=== PATIENT | female | born 1940 | race Caucasian/White ===

== ENCOUNTER 2018-03-06 09:49 | Emergency (ER) | payer MEDICARE, OTHER ==
[~2018-03-06] VITALS: Ht 152.4 cm; Wt 49.0 kg
[2018-03-06] MEDS ORDERED: SIMVASTATIN40 MG PO (10:03)
[2018-03-06] MEDS ORDERED: PROTONIX40 M1 PO (10:04)
[2018-03-06] MEDS ORDERED: LISINOPRIL20 MG PO (10:05)
[2018-03-06] MEDS ORDERED: FOSAMAX 70 MG T70 MG PO (10:05)
[2018-03-06] MEDS ORDERED: GABAPENTIN 100100 MG PO (10:05)
[2018-03-06 10:14] LABS: ABSOLUTE BASOPHILS 0.1 thou/uL (0.0-0.2); ABSOLUTE LYMPHOCYTES 2.1 thou/uL (0.8-5.3); ABSOLUTE MONOCYTES 0.8 thou/uL (0.0-1.2); ABSOLUTE NEUTROPHILS 5.4 thou/uL (1.6-8.1); BASOPHILS 0.8 %; EOSINOPHILS 0.3 %; HEMOGLOBIN 13.5 gm/dL (12.0-15.0); LYMPHOCYTES 24.7 %; MCH 32.7 pg (26.0-34.0); MCHC 33.7 g/dL (28.0-37.0); MPV 7.8 fl. (7.2-11.1); NUCLEATED RBCS 0 /100WBC; PLATELET COUNT* 269 thou/uL (150-400); POLYS 64.2 %; RBC 4.12 mil/uL (4.20-5.00); RDW-CV 13.7 % (10.5-14.5); WBC 8.4 thou/uL (4.0-11.0)
[2018-03-06 10:23] LABS: ANION GAP 15 mmol/L (7-16); BUN 21 mg/dL (7-18); CALCIUM 9.6 mg/dL (8.5-10.1); CHLORIDE 102 mmol/L (98-107); CO2 24 mmol/L (21-32); CREATININE 1.4 mg/dL (0.6-1.3); GLUCOSE 150 mg/dL (70-99); POTASSIUM 4.5 mmol/L (3.5-5.1); SODIUM 141 mmol/L (136-145)
[2018-03-06 10:34] LABS: ALBUMIN 4.5 g/dL (3.4-5.0); ALKALINE PHOSPHATASE 70 U/L (46-116); LIPASE 199 U/L (73-393); NT-PRO BRAIN NAT PEPTIDE 45 pg/mL (<300); SGOT 25 U/L (15-37); SGPT 19 U/L (30-65); TOTAL BILIRUBIN 0.5 mg/dL (<0.1-1.0); TOTAL PROTEIN 8.6 g/dL (6.4-8.2); TROPONIN-I LEVEL <0.06 ng/mL (<0.06)
[2018-03-06 11:06] LABS: URINE BILIRUBIN NEGATIVE (Negative); URINE BLOOD NEGATIVE (Negative); URINE CLARITY CLEAR; URINE COLOR YELLOW; URINE GLUCOSE-RANDOM NEGATIVE (Negative); URINE KETONES NEGATIVE (Negative); URINE PROTEIN NEGATIVE (Negative); URINE SPECIFIC GRAVITY <= 1.005 (1.005-1.030); URINE UROBILINOGEN 0.2 E.U./dl (0.2-1.0)
[2018-03-06 11:08] LABS: URINE LEUKOCYTES-REFLEX 2+ (Negative); URINE NITRITE-REFLEX POSITIVE (Negative)
[2018-03-06 11:24] LABS: SQUAMOUS 0-3 Few /LPF (0-3)
[2018-03-06 11:25] LABS: BACTERIA-REFLEX >30 Many /HPF (None Seen); CASTS None Seen /LPF (None Seen); CRYSTALS None Seen /LPF (None Seen); MUCUS None Seen strn/LPF (None Seen); URINE RBC 0-2 Rare /HPF (0-2); URINE WBC-REFLEX 6-15 Few /HPF (0-5)
[2018-03-06] MEDS ORDERED: BACTRIM DS TAB1 EACH PO (14:07)
[2018-03-06 14:18] VITALS: BP 131/84
--- NOTE | 2018-03-06 16:40 | EKG ---
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
== END 2018-03-06 14:19 | disposition home or self-care (01) ==
LOC: M.ERS 09:49
PROVIDERS: Emergency Medicine
DX: N39.0 Urinary tract infection, site not specified (principal); R42 Dizziness and giddiness; Z88.5 Allergy status to narcotic agent

== ENCOUNTER → 2019-12-16 | Outpatient (CLI) | payer MEDICARE, OTHER ==
[~2019-12-16] MED LIST: BACTRIM DS TAB1 EACH PO; FOSAMAX 70 MG T70 MG PO; GABAPENTIN 100100 MG PO; LISINOPRIL20 MG PO; PROTONIX40 M1 PO; SIMVASTATIN40 MG PO
== END ==
LOC: M.RAD 09:58
DX: Z12.31 Encounter for screening mammogram for malignant neoplasm of breast (principal)

== ENCOUNTER 2021-07-27 09:33 | Inpatient (IN) | payer MEDICARE, OTHER ==
[~2021-07-27] VITALS: Ht 152.4 cm; Wt 52.2 kg
[~2021-07-27 09:33] MED LIST changes: -PROTONIX40 M1 PO; +PROTONIX40 M2 PO
[2021-07-27 09:36] VITALS: BP 127/59
[2021-07-27 10:15] LABS: ABSOLUTE LYMPHOCYTES 2.7 thou/uL (0.8-5.3); ABSOLUTE MONOCYTES 0.6 thou/uL (0.0-1.2); ABSOLUTE NEUTROPHILS 4.4 thou/uL (1.6-8.1); BASOPHILS 0.4 %; EOSINOPHILS 0.4 %; HEMATOCRIT 34.7 % (37.0-47.0); HEMOGLOBIN 11.5 gm/dL (12.0-15.0); MCH 30.1 pg (26.0-34.0); MCV 91.2 fL (80.0-100.0); MONOCYTES 8.2 %; MPV 7.5 fl. (7.2-11.1); NUCLEATED RBCS 0 /100WBC; PLATELET COUNT* 281 thou/uL (150-400); RDW-CV 13.8 % (10.5-14.5); WBC 7.8 thou/uL (4.0-11.0)
[2021-07-27 10:25] LABS: CREATININE 1.8 mg/dL (0.6-1.3); POTASSIUM 4.2 mmol/L (3.5-5.1)
[2021-07-27 10:30] LABS: ALBUMIN 4.2 g/dL (3.4-5.0); TOTAL BILIRUBIN 0.4 mg/dL (<0.1-1.0); TOTAL PROTEIN 7.4 g/dL (6.4-8.2)
[2021-07-27 15:25] VITALS: BP 102/49
[2021-07-27 19:25] VITALS: BP 119/56
[2021-07-28 01:23] VITALS: BP 108/57
[2021-07-28 04:55] LABS: HEMATOCRIT 28.6 % (37.0-47.0); HEMOGLOBIN 9.9 gm/dL (12.0-15.0); MCH 31.1 pg (26.0-34.0); MCHC 34.7 g/dL (28.0-37.0); MCV 89.6 fL (80.0-100.0); MPV 7.9 fl. (7.2-11.1); RBC 3.2 mil/uL (4.20-5.00); RDW-CV 13.4 % (10.5-14.5); WBC 7.4 thou/uL (4.0-11.0)
[2021-07-28 05:05] LABS: ALBUMIN 3.1 g/dL (3.4-5.0); CALCIUM 8.1 mg/dL (8.5-10.1); CREATININE 1.4 mg/dL (0.6-1.3); MAGNESIUM 1.7 mg/dL (1.8-2.4); POTASSIUM 4.4 mmol/L (3.5-5.1); TOTAL BILIRUBIN 0.4 mg/dL (<0.1-1.0); TOTAL PROTEIN 6.1 g/dL (6.4-8.2)
[2021-07-28 05:38] VITALS: BP 105/55
[2021-07-28 08:00] VITALS: BP 105/61
--- NOTE | 2021-07-28 15:56 | EKG ---
[place] [address] ELECTROCARDIOGRAM REPORT Name: АЛЕКСАНДР MCADAMS Room: [address] IN [facility].#: [id number] Admission: 07/27/21 Attend Phys: Lizbeth Jacobo, Discharge: Date of : 42 Date of Service: 07/28/21 1018 Report #: [id number] THIS REPORT FOR: //name// [facility] Test Date: 2021-07-28 Test Time: 10:18:02 Pat Name: АЛЕКСАНДР MCADAMS Department: Room: [address] Gender: F Business Process Associate: ROXANE CURIEL : 1940 Requested By: Philip Rod Order Number: [id number] Nehemias MD: Sabas Arredondo Measurements Intervals [place] Rate: 73 P: 56 HI: 146 QRS: 2 QRSD: 86 T: 9 QT: 389 QTc: 429 Interpretive Statements Sinus rhythm Low voltage, extremity and precordial leads Nonspecific ST-T changes Compared to ECG 03/06/2018 09:57:21 No significant changes Electronically Signed On 07-28-2021 15:55:48 CDT by Sabas Arredondo [email or web address] <ELECTRONICALLY SIGNED> By: Sabas Arredondo MD, [facility] 07/28/21 1555 1018 1018 Sabas Arredondo MD, [facility] /EPI
[2021-07-28 16:00] VITALS: BP 98/49
[2021-07-28 20:00] VITALS: BP 111/57
[2021-07-29] VITALS: BP 106/51; BP 134/54
[2021-07-29 04:00] VITALS: BP 100/49
[2021-07-29 07:21] LABS: HEMATOCRIT 28.1 % (37.0-47.0); HEMOGLOBIN 9.5 gm/dL (12.0-15.0); MCH 30.8 pg (26.0-34.0); MCHC 33.8 g/dL (28.0-37.0); MPV 7.7 fl. (7.2-11.1); RBC 3.09 mil/uL (4.20-5.00); RDW-CV 13.9 % (10.5-14.5); WBC 13.5 thou/uL (4.0-11.0)
[2021-07-29 07:30] LABS: APTT 31.3 Seconds (25.0-31.3); CALCIUM 8.1 mg/dL (8.5-10.1); CREATININE 1.4 mg/dL (0.6-1.3); INR 1.1; POTASSIUM 4.6 mmol/L (3.5-5.1); PROTIME 11.4 Seconds (9.20-11.50)
[2021-07-29 08:05] VITALS: BP 124/68
[2021-07-29 16:00] VITALS: BP 130/69
[2021-07-29 20:06] VITALS: BP 138/76
[2021-07-30 04:00] VITALS: BP 124/60
[2021-07-30 08:00] VITALS: BP 140/70
[2021-07-30 08:25] LABS: HEMATOCRIT 25.4 % (37.0-47.0); HEMOGLOBIN 8.8 gm/dL (12.0-15.0); MCH 31.4 pg (26.0-34.0); MCHC 34.8 g/dL (28.0-37.0); MCV 90.2 fL (80.0-100.0); MPV 8.2 fl. (7.2-11.1); RBC 2.82 mil/uL (4.20-5.00); RDW-CV 13.6 % (10.5-14.5); WBC 8.8 thou/uL (4.0-11.0)
[2021-07-30 09:02] LABS: CALCIUM 7.6 mg/dL (8.5-10.1); CREATININE 1.2 mg/dL (0.6-1.3); POTASSIUM 4.1 mmol/L (3.5-5.1)
[2021-07-30 09:35] VITALS: BP 140/70
[2021-07-30] MEDS ORDERED: TRAMADOL 50 MG50 MG PO (10:13)
[2021-07-30] MEDS ORDERED: CIPROFLOXACIN750 MG PO (10:22)
[2021-07-31 08:19] LABS: URINE BILIRUBIN NEGATIVE (Negative); URINE BLOOD TRACE (Negative); URINE CLARITY CLEAR; URINE COLOR YELLOW; URINE GLUCOSE-RANDOM NEGATIVE (Negative); URINE KETONES NEGATIVE (Negative); URINE LEUKOCYTES NEGATIVE (Negative); URINE NITRITE NEGATIVE (Negative); URINE PROTEIN NEGATIVE (Negative); URINE SPECIFIC GRAVITY 1.015 (1.005-1.030); URINE UROBILINOGEN 0.2 E.U./dl (0.2-1.0)
[2021-08-01] MEDS ORDERED: LISINOPRIL20 MG PO (18:27)
== END 2021-07-30 14:39 | DRG 521 ==
LOC: M.ERS 09:33 → M.2W 10:49 → M.TBA-ER 10:49 → M.2W 19:29
PROVIDERS: Emergency Medicine; Internal Medicine; ADMIT Internal Medicine; ATTEND Internal Medicine
PROC: 0SRR019 Replacement of Right Hip Joint, Femoral Surface with Metal Synthetic Substitute, Cemented, Open Approach (ICD-10-PCS; principal; 2021-07-28)
DX: M80.051A Age-related osteoporosis with current pathological fracture, right femur, initial encounter for fracture (principal); N17.0 Acute kidney failure with tubular necrosis; N39.0 Urinary tract infection, site not specified; I10 Essential (primary) hypertension; Z20.822 Contact with and (suspected) exposure to COVID-19; E78.5 Hyperlipidemia, unspecified; K21.9 Gastro-esophageal reflux disease without esophagitis; Z88.6 Allergy status to analgesic agent; Z79.899 Other long term (current) drug therapy

== ENCOUNTER 2021-07-30 11:06 | Inpatient (IN) | payer MEDICARE, OTHER ==
[~2021-07-30] VITALS: Ht 152.4 cm; Wt 45.4 kg
[~2021-07-30 11:06] MED LIST changes: +CIPROFLOXACIN750 MG PO; +TRAMADOL 50 MG50 MG PO
[2021-07-30 16:02] VITALS: BP 131/69
[2021-07-30 18:32] VITALS: BP 131/69
[2021-07-30 20:00] VITALS: BP 123/71
[2021-07-31 05:22] LABS: CALCIUM 8.2 mg/dL (8.5-10.1); CREATININE 1.1 mg/dL (0.6-1.3); POTASSIUM 3.9 mmol/L (3.5-5.1)
[2021-07-31 05:34] LABS: MAGNESIUM 1.6 mg/dL (1.8-2.4)
[2021-07-31 05:37] LABS: HEMATOCRIT 26.3 % (37.0-47.0); HEMOGLOBIN 9.1 gm/dL (12.0-15.0); MCHC 34.6 g/dL (28.0-37.0); MCV 89.6 fL (80.0-100.0); RBC 2.93 mil/uL (4.20-5.00); RDW-CV 13.7 % (10.5-14.5)
[2021-07-31 08:00] VITALS: BP 145/75
--- NOTE | 2021-07-31 11:52 | EKG ---
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: [place]A : 1940 Requested By: Remi Hoover Order Number: [id number] Reading MD: Mohamud Donnelly Measurements Intervals [place] Rate: 76 P: 39 GA: 138 QRS: 5 QRSD: 92 T: 10 QT: 386 QTc: 435 Interpretive Statements Sinus rhythm Low voltage, precordial leads Compared to ECG 07/28/2021 10:18:02 ST (T wave) deviation no longer present Electronically Signed On 07-31-2021 11:52:23 CDT by Mohamud Donnelly [email or web address] <ELECTRONICALLY SIGNED> By: David Donnelly MD, [facility] 07/31/21 1152 0 0 David Donnelly MD, [facility] /EPI
[2021-07-31 20:00] VITALS: BP 143/89
[2021-08-01 07:45] VITALS: BP 114/59
[2021-08-01 16:56] LABS: HEMATOCRIT 33.1 % (37.0-47.0); MCH 30.2 pg (26.0-34.0); MCHC 33.8 g/dL (28.0-37.0); MCV 89.5 fL (80.0-100.0); MPV 7.6 fl. (7.2-11.1); NUCLEATED RBCS 0 /100WBC; RDW-CV 13.6 % (10.5-14.5); WBC 13.4 thou/uL (4.0-11.0)
[2021-08-01 16:59] LABS: HEMOGLOBIN 11.2 gm/dL (12.0-15.0); PLATELET COUNT* 345 thou/uL (150-400)
[2021-08-01 17:15] LABS: CALCIUM 9.4 mg/dL (8.5-10.1); CREATININE 1.5 mg/dL (0.6-1.3); POTASSIUM 3.9 mmol/L (3.5-5.1); TOTAL BILIRUBIN 0.6 mg/dL (<0.1-1.0); TOTAL PROTEIN 7.1 g/dL (6.4-8.2)
[2021-08-01 17:35] LABS: BE 0.1 mmol/L (-2 to +3); PO2 113.5 mmHg (75.0-100.0)
[2021-08-01 17:37] LABS: PCO2 17.7 mmHg (35.0-45.0); pH 7.663 (7.340-7.450)
[2021-08-01 17:41] LABS: ABSOLUTE LYMPHOCYTES 1.2 thou/uL (0.8-5.3); ABSOLUTE MONOCYTES 0.3 thou/uL (0.0-1.2); ABSOLUTE NEUTROPHILS 11.9 thou/uL (1.6-8.1)
[2021-08-01 17:42] LABS: LARGE PLATELETS OCCASIONAL; PLATELET ESTIMATE ADEQUATE
[2021-08-01 18:10] VITALS: BP 131/69
[2021-08-01] MEDS ORDERED: ACETAMINOPHEN500 M1 PO (18:20)
[2021-08-01] MEDS ORDERED: IBUPROFEN 800800 M1 PO (18:22)
[2021-08-01] MEDS ORDERED: ERYTHROMYCIN250 M1 PO (18:24)
[2021-08-01] MEDS ORDERED: NEURONTIN100 MG PO (18:25)
[2021-08-01] MEDS ORDERED: FAMOTIDINE 20 M20 MG PO (18:25)
[2021-08-01] MEDS ORDERED: LIDODERM1 EACH TOP (18:26)
[2021-08-01] MEDS ORDERED: LISINOPRIL20 MG PO ×2 (18:27)
[2021-08-01] MEDS ORDERED: ATIVAN0.5 M1 PO (18:28)
[2021-08-01 19:17] LABS: URINE BLOOD 1+ (Negative); URINE CLARITY CLEAR; URINE COLOR YELLOW; URINE GLUCOSE-RANDOM NEGATIVE (Negative); URINE LEUKOCYTES-REFLEX NEGATIVE (Negative); URINE NITRITE-REFLEX NEGATIVE (Negative); URINE PROTEIN 1+ (Negative); URINE SPECIFIC GRAVITY 1.025 (1.005-1.030); URINE UROBILINOGEN 0.2 E.U./dl (0.2-1.0)
[2021-08-01 19:18] LABS: ICTOTEST (BILI CONFIRMATORY) Negative (Negative); URINE BILIRUBIN 1+ (Negative); URINE KETONES 3+ (Negative)
[2021-08-01 19:23] LABS: HYALINE CASTS 4-10 Moderate /LPF (None Seen); MUCUS 4-6 Moderate strn/LPF (None Seen); SQUAMOUS >10 Many /LPF (0-3)
[2021-08-01 19:24] LABS: AMORPHOUS URATES Moderate /LPF (None Seen); BACTERIA-REFLEX 1-9 Few /HPF (None Seen); URINE RBC 3-10 Few /HPF (0-2)
--- NOTE | 2021-08-02 10:40 | EKG ---
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: : 1940 Requested By: Lui Farmer Order Number: [id number] Nehemias MD: Darron Covington Measurements Intervals [place] Rate: 90 P: 63 CA: 142 QRS: 10 QRSD: 221 T: -6 QT: 363 QTc: 444 Interpretive Statements Sinus rhythm Left atrial enlargement Nonspecific intraventricular conduction delay Artifact in lead(s) I,III,aVR,aVL,aVF,V1,V2,V3,V4,V5,V6 Compared to ECG 07/31/2021 03:51:30 no change Electronically Signed On 08-02-2021 10:40:41 CDT by Darron Covington [email or web address] <ELECTRONICALLY SIGNED> By: Darron Covington MD, [facility] 08/02/21 1040 1606 1606 Darron Covington MD, [facility] /EPI
--- NOTE | 2021-08-02 10:44 | EKG ---
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: : 1940 Requested By: Lui Farmer Order Number: [id number] Nehemias MD: Darron Covington Measurements Intervals [place] Rate: 82 P: -27 [place]: 105 QRS: 16 QRSD: 97 T: 24 QT: 381 QTc: 445 Interpretive Statements Sinus rhythm Short [place] interval Low voltage, precordial leads Compared to ECG 08/01/2021 16:06:35 Short [place] interval now present Low QRS voltage now present Atrial abnormality no longer present Electronically Signed On 08-02-2021 10:43:38 CDT by Darron Covington [email or web address] <ELECTRONICALLY SIGNED> By: Darron Covington MD, FACC 08/02/21 1043 170 170 Darron Covington MD, [facility] /EPI
== END 2021-08-01 18:41 | disposition short-term general hospital (02) | DRG 536 ==
LOC: M.REH 11:06
PROVIDERS: Internal Medicine; ADMIT Physical Medicine & Rehabilitation; ATTEND Physical Medicine & Rehabilitation
DX: S72.001A Fracture of unspecified part of neck of right femur, initial encounter for closed fracture (principal); N39.0 Urinary tract infection, site not specified; I10 Essential (primary) hypertension; E78.5 Hyperlipidemia, unspecified; K21.9 Gastro-esophageal reflux disease without esophagitis; M81.0 Age-related osteoporosis without current pathological fracture; K59.00 Constipation, unspecified; Z88.6 Allergy status to analgesic agent; Z82.49 Family history of ischemic heart disease and other diseases of the circulatory system; W18.39XA Other fall on same level, initial encounter; Y93.89 Activity, other specified; Y92.89 Other specified places as the place of occurrence of the external cause; Y99.8 Other external cause status

== ENCOUNTER 2021-08-01 18:59 | Inpatient (IN) | payer MEDICARE, OTHER ==
[~2021-08-01] VITALS: Ht 152.4 cm; Wt 49.4 kg
[~2021-08-01 18:59] MED LIST changes: +ACETAMINOPHEN500 M1 PO; +ATIVAN0.5 M1 PO; +ERYTHROMYCIN250 M1 PO; +FAMOTIDINE 20 M20 MG PO; +IBUPROFEN 800800 M1 PO; +LIDODERM1 EACH TOP; +NEURONTIN100 MG PO
[2021-08-01 19:00] VITALS: BP 126/61
[2021-08-01 21:00] VITALS: BP 129/70
[2021-08-02] VITALS: BP 103/54
[2021-08-02 04:00] VITALS: BP 129/75
[2021-08-02 07:14] LABS: ABSOLUTE EOSINOPHILS 0.1 thou/uL (0.0-0.7); ABSOLUTE LYMPHOCYTES 1.2 thou/uL (0.8-5.3); ABSOLUTE MONOCYTES 0.9 thou/uL (0.0-1.2); ABSOLUTE NEUTROPHILS 4.4 thou/uL (1.6-8.1); BASOPHILS 0.5 %; HEMATOCRIT 26.1 % (37.0-47.0); LYMPHOCYTES 17.6 %; MCH 30.7 pg (26.0-34.0); MCHC 34.4 g/dL (28.0-37.0); MCV 89.4 fL (80.0-100.0); MONOCYTES 13.5 %; MPV 6.7 fl. (7.2-11.1); NUCLEATED RBCS 0 /100WBC; PLATELET COUNT* 280 thou/uL (150-400); POLYS 67.4 %; RBC 2.92 mil/uL (4.20-5.00); RDW-CV 13.6 % (10.5-14.5); WBC 6.6 thou/uL (4.0-11.0)
[2021-08-02 07:55] LABS: ALBUMIN 2.3 g/dL (3.4-5.0); CALCIUM 8.1 mg/dL (8.5-10.1); CREATININE 1.4 mg/dL (0.6-1.3); POTASSIUM 3.3 mmol/L (3.5-5.1); TOTAL BILIRUBIN 0.3 mg/dL (<0.1-1.0); TOTAL PROTEIN 5.6 g/dL (6.4-8.2)
[2021-08-02 08:10] VITALS: BP 115/60
[2021-08-02 12:00] VITALS: BP 128/70
--- NOTE | 2021-08-02 12:40 | 2DMMODE ---
[place] [address] 2 D/M-MODE ECHOCARDIOGRAM Name: АЛЕКСАНДР MCADAMS Room: [address] IN [facility]#: [id number] Admission: 08/01/21 Attend Phys: Lui Farmer Discharge: Date of : 42 Date of Service: 08/02/21 1239 Report #: [id number] THIS REPORT FOR: cc: Renu Lucas MD, Karmel MD Blick, David R. MD [facility] ~ APPROVED REPORT Study performed: 08/02/2021 11:14:08 EXAM: Comprehensive 2D, Doppler, and color-flow Echocardiogram Patient Location: In-Patient Room #: [facility] Status: routine BSA: 1.44 HR: 90 bpm BP: 115/60 mmHg Rhythm: NSR Other Information Study Quality: Fair Technically limited study due to OFF AXIS IMAGING PARASTERNAL VIEWS. Indications Syncope 2D Dimensions IVSd: 9.47 (7-11mm) LVOT Diam: 20.03 (18-24mm) LVDd: 41.94 mm PWd: 9.78 (7-11mm) Ascending Ao: 26.48 (22-36mm) LVDs: 23.78 (25-40mm) Aortic Root: 28.61 mm Volumes Left Atrial Volume (Systole) LA ESV Index: 12.90 mL/m2 Aortic Valve AoV Peak Ayden.: 1.86 m/s AO Peak Gr.: 13.90 mmHg LVOT Max P.42 mmHg AO Mean Gr.: 7.32 mmHg LVOT Mean P.57 mmHg LVOT Max V: 1.69 m/s AO V2 VTI: 28.34 cm LVOT Mean V: 0.96 m/[place] [address] 2 D/M-MODE ECHOCARDIOGRAM Name: АЛЕКСАНДР MCADAMS Room: [address] IN ..#: [id number] Admission: 08/01/21 Attend Phys: Lui Farmer Discharge: Date of : 42 Date of Service: 08/02/21 1239 Report #: [id number] QAMAR (VTI): 3.16 cm2 LVOT V1 VTI: 28.44 cm AI Elbert: 2.18 m/s2 AI PHT: 441.23 ms Mitral Valve E/A Ratio: 0.59 MV Decel. Time: 288.74 ms MV E Max Ayden.: 0.58 m/s MV PHT: 83.74 ms MVA (PHT): 2.63 cm2 TDI E/Lateral E': 5.27 E/Medial E': 5.80 Medial E' Ayden.: 0.10 m/s Lateral E' Ayden.: 0.11 m/s Tricuspid Valve RAP Estimate: 5.00 mmHg TR Peak Gr.: 26.10 mmHg RVSP: 31.00 mmHg PA Pressure: 31.00 mmHg Left Ventricle The left ventricle is normal size. There is normal LV segmental wall motion. There is normal left ventricular wall thickness. Left ventricular systolic function is normal. The left ventricular ejection fraction is within the normal range. LVEF is 65-70%. Grade I - abnormal relaxation pattern. Right Ventricle The right ventricle is normal size. The right ventricular systolic function is normal. Atria The left atrium size is normal. The right atrium size is normal. Aortic Valve The aortic valve is normal in structure. Mild aortic regurgitation. There is no aortic valvular stenosis. Mitral Valve The mitral valve is normal in structure. There is no mitral valve regurgitation noted. No evidence of mitral valve stenosis. Tricuspid Valve The tricuspid valve is normal in structure. [place] [address] 2 D/M-MODE ECHOCARDIOGRAM Name: АЛЕКСАНДР MCADAMS Room: [address] IN [facility]#: [id number] Admission: 08/01/21 Attend Phys: Lui Farmer Discharge: Date of : 42 Date of Service: 08/02/21 1239 Report #: [id number] regurgitation. estimated pa pressure 35 mm Hg Pulmonic Valve The pulmonary valve is normal in structure. There is no pulmonic valvular regurgitation. Great Vessels The aortic root is normal in size. IVC is normal in size and collapses >50% with inspiration. Pericardium There is no pericardial effusion. <Conclusion> LVEF is 65-70%. Mild aortic regurgitation. <ELECTRONICALLY SIGNED> By: Darron Covington MD, [facility] 08/02/21 1239 1239 1239 Darron Covington MD, FACC /INF
[2021-08-02 16:00] VITALS: BP 127/71
[2021-08-02 19:45] VITALS: BP 150/66
[2021-08-03 06:00] VITALS: BP 126/71
[2021-08-03 08:43] VITALS: BP 128/72
[2021-08-03 10:30] VITALS: BP 136/69; BP 140/72; BP 140/79
[2021-08-03 11:20] VITALS: BP 126/70
[2021-08-03] MEDS ORDERED: XARELTO10 M1 PO (16:14)
== END 2021-08-03 15:25 | DRG 312 ==
LOC: M.2W 18:59
PROVIDERS: ADMIT Internal Medicine; ATTEND Internal Medicine
DX: I95.1 Orthostatic hypotension (principal); E43 Unspecified severe protein-calorie malnutrition; N39.0 Urinary tract infection, site not specified; E78.5 Hyperlipidemia, unspecified; I12.9 Hypertensive chronic kidney disease with stage 1 through stage 4 chronic kidney disease, or unspecified chronic kidney disease; K21.9 Gastro-esophageal reflux disease without esophagitis; M81.0 Age-related osteoporosis without current pathological fracture; K59.00 Constipation, unspecified; N18.30 Chronic kidney disease, stage 3 unspecified; Z87.81 Personal history of (healed) traumatic fracture; Z88.6 Allergy status to analgesic agent

== ENCOUNTER 2021-08-03 14:18 | Inpatient (IN) | payer MEDICARE, OTHER ==
[~2021-08-03] VITALS: Ht 152.4 cm; Wt 45.4 kg
--- NOTE | ~2021-08-03 | PROC ---
[address] [address] PROCEDURE REPORT Name: АЛЕКСАНДР MCADAMS Room: [address] IN ..#: [id number] Admission: 08/03/21 Attend Phys: Remi Hoover MD Discharge: Date of : 42 Report #: [id number] THIS REPORT FOR: cc: Renu Lucas MD, Karmel MD [facility],Medical Records Staff ~ For GI report, please see the Provation report in Perceptive 7 content. By: 0657Medical Records Staff MADELIN /SAGAR
--- NOTE | ~2021-08-03 | CON ---
[facility] [address] [place] [address] CONSULTATION Name: АЛЕКСАНДР MCADAMS Room: [address] IN [facility]#: [id number] Admission: 08/03/21 Attend Phys: Remi Hoover MD Discharge: 08/17/21 Date of : 42 Report #: [id number] THIS REPORT FOR: cc: Renu Lucas MD, Karmel MD [place], Roxane S. DO ~ DATE OF CONSULTATION: 08/07/2021 NEUROLOGY CONSULT HISTORY OF PRESENT ILLNESS: The patient is an 81-year-old female who presents with 2 days of confusion. Her is in the room and he states that she has never had any difficulty with confusion and that it began 2 days ago. Apparently, the patient was admitted to the hospital after falling while cleaning her yard on 07/25. She was brought to the hospital and had to have a right hip hemiarthroplasty. On 07/31, she complained of abdominal pain and was diagnosed with constipation. Apparently, she had not moved her bowels for a week. After moving her bowels, however, she had a syncopal episode while standing. The nurse was with her when this happened and she did not fall. She was moved to telemetry where she received physical therapy and regained her strength. She is now on rehab. While she has been on rehab for the past 2 days, she has had confusion. Reading Dr. Farmer's notes, he also states that the patient had expressed sadness to him and had been crying about her progress. She told him that it was like a "roller coaster." PAST MEDICAL HISTORY: Gastroesophageal reflux, anxiety, hyperlipidemia, osteoporosis, hypertension. PAST SURGICAL HISTORY: Cochlear implant, right hip arthroplasty. MEDICATIONS: Atorvastatin 20 mg daily, buspirone 5 mg daily, ciprofloxacin 750 mg b.i.d., erythromycin 250 mg daily, famotidine 20 mg b.i.d., gabapentin 100 mg daily, lidocaine patch daily, lisinopril 20 mg daily, lorazepam 0.25 mg q.6 hours (the patient has only received one dose on 08/06/2021 at 20:42), pantoprazole 40 mg daily, Xarelto 10 mg daily, scopolamine patch every 72 hours. ALLERGIES: MORPHINE AND CODEINE. VITAL SIGNS: Temperature 36.5, pulse rate 72, respiratory rate 17, blood pressure 110/57, bedside pulse oximetry 92% on room air. LABORATORY DATA: Hematology: White blood cell count 8.1, hemoglobin 9.7, [place] [address] CONSULTATION Name: АЛЕКСАНДР MCADAMS Room: [address]#: [id number] Admission: 08/03/21 Attend Phys: Remi Hoover MD Discharge: 08/17/21 Date of : 42 Report #: [id number] hematocrit 27.9, MCV 89, platelet count 445,000. Chemistry: Sodium 126, potassium 5.1, chloride 94, carbon dioxide 24, BUN 16, creatinine 1.5, glucose 113, calcium 8.2, total bilirubin 0.3, AST 30, ALT 26, alkaline phosphatase 84, total protein 6.6, albumin 3.1. B12 193. TSH 0.874. IMAGING: CT scan of the head demonstrates the cochlear stimulator over the right parietal bone with electrodes entering the inner ear and mild atrophy with microvascular changes. NEUROLOGIC: Mini Mental State Exam: The patient was oriented to place and time. Immediate recall was 3/3 objects. Remote recall was 1/3 objects. She was able to spell world forwards and backwards with one mistake when spelling it backwards. She was able to name and repeat. Cranial nerves 2-12 are grossly intact. Motor exam demonstrates symmetrical strength in all 4 extremities. Reflexes are trace throughout. Plantar responses are flexor. Coordination reveals intact [id number]. IMPRESSION: This patient has been confused for 2 days. Laboratory work yesterday reveals a sodium of 126 with increasing creatinine. It may be beneficial for Nephrology to see this patient. The lower sodium can be causing confusion. Yesterday, I ordered a CT scan of the head along with the B12 and TSH. The patient's B12 is 193, which is at the lowest level of normal. I have added a methylmalonic acid level. The patient's thyroid is normal. However, I will also start the patient on B12 injections 1000 mcg subQ daily for 3 days, after that she can begin B12 1000 mcg daily. At this point, I would not give the patient a diagnosis of mild cognitive impairment until her electrolytes have normalized. If the electrolytes normalize and this confusion continues, then she will need outpatient followup with a neurologist for continued evaluation. I would also be cautious about giving this patient lorazepam for anxiety because this can also interfere with her thinking and I think it is best to discontinue lorazepam and try to instead increase the dose of BuSpar to make the patient's medications also more simple. I thank you for your kind referral of the patient and will continue to follow her with you. By: 0955 1055Tish Lambert, DO /nt
[2021-08-03] MEDS ORDERED: XARELTO10 M1 PO (16:14)
[2021-08-03 16:55] VITALS: BP 137/74
[2021-08-03 20:00] VITALS: BP 149/87
[2021-08-04 05:30] LABS: HEMATOCRIT 28.2 % (37.0-47.0); HEMOGLOBIN 9.8 gm/dL (12.0-15.0); MCH 30.4 pg (26.0-34.0); MCHC 34.5 g/dL (28.0-37.0); RBC 3.21 mil/uL (4.20-5.00); RDW-CV 13.6 % (10.5-14.5); WBC 7.6 thou/uL (4.0-11.0)
[2021-08-04 05:56] LABS: CALCIUM 8.2 mg/dL (8.5-10.1); CREATININE 1.3 mg/dL (0.6-1.3); POTASSIUM 3.9 mmol/L (3.5-5.1)
[2021-08-04 08:15] VITALS: BP 135/76
[2021-08-04 20:00] VITALS: BP 120/65
[2021-08-05 07:56] VITALS: BP 122/60
[2021-08-05 19:44] VITALS: BP 126/88
[2021-08-06 07:48] VITALS: BP 133/79
[2021-08-06 12:08] LABS: ABSOLUTE BASOPHILS 0.1 thou/uL (0.0-0.2); ABSOLUTE EOSINOPHILS 0.1 thou/uL (0.0-0.7); ABSOLUTE LYMPHOCYTES 1.6 thou/uL (0.8-5.3); ABSOLUTE MONOCYTES 1.1 thou/uL (0.0-1.2); ABSOLUTE NEUTROPHILS 5.3 thou/uL (1.6-8.1); BASOPHILS 0.9 %; EOSINOPHILS 1.3 %; HEMATOCRIT 27.9 % (37.0-47.0); HEMOGLOBIN 9.7 gm/dL (12.0-15.0); LYMPHOCYTES 19.2 %; MCH 30.8 pg (26.0-34.0); MCHC 34.7 g/dL (28.0-37.0); MONOCYTES 13.1 %; MPV 6.4 fl. (7.2-11.1); NUCLEATED RBCS 0 /100WBC; PLATELET COUNT* 445 thou/uL (150-400); POLYS 65.5 %; RBC 3.13 mil/uL (4.20-5.00); RDW-CV 13.8 % (10.5-14.5); WBC 8.1 thou/uL (4.0-11.0)
[2021-08-06 12:24] LABS: ALBUMIN 3.1 g/dL (3.4-5.0); CALCIUM 8.2 mg/dL (8.5-10.1); CREATININE 1.5 mg/dL (0.6-1.3); TOTAL BILIRUBIN 0.3 mg/dL (<0.1-1.0); TOTAL PROTEIN 6.6 g/dL (6.4-8.2)
[2021-08-06 12:25] LABS: POTASSIUM 5.1 mmol/L (3.5-5.1)
[2021-08-06 22:00] VITALS: BP 116/57
[2021-08-07 07:30] VITALS: BP 110/57
[2021-08-07 08:14] VITALS: BP 110/57
[2021-08-07 12:49] LABS: CALCIUM 8.5 mg/dL (8.5-10.1); CREATININE 1.5 mg/dL (0.6-1.3); POTASSIUM 4.8 mmol/L (3.5-5.1)
[2021-08-07 20:00] VITALS: BP 96/51
[2021-08-08 04:11] LABS: CALCIUM 8.1 mg/dL (8.5-10.1); CREATININE 1.4 mg/dL (0.6-1.3); POTASSIUM 4.7 mmol/L (3.5-5.1)
[2021-08-08 08:00] VITALS: BP 104/57
[2021-08-08 19:58] VITALS: BP 100/45
[2021-08-09 07:30] VITALS: BP 104/60
[2021-08-09 11:45] LABS: URINE BILIRUBIN NEGATIVE (Negative); URINE BLOOD TRACE (Negative); URINE CLARITY CLEAR; URINE COLOR YELLOW; URINE GLUCOSE-RANDOM NEGATIVE (Negative); URINE KETONES NEGATIVE (Negative); URINE LEUKOCYTES-REFLEX NEGATIVE (Negative); URINE NITRITE-REFLEX NEGATIVE (Negative); URINE PROTEIN NEGATIVE (Negative); URINE SPECIFIC GRAVITY >= 1.030 (1.005-1.030); URINE UROBILINOGEN 0.2 E.U./dl (0.2-1.0)
[2021-08-09 19:00] VITALS: BP 107/58
[2021-08-10 07:54] VITALS: BP 97/47
[2021-08-10 08:00] VITALS: BP 97/47
[2021-08-10 11:42] LABS: HEMATOCRIT 27.8 % (37.0-47.0); HEMOGLOBIN 9.6 gm/dL (12.0-15.0); MCH 30.7 pg (26.0-34.0); MCHC 34.5 g/dL (28.0-37.0); MCV 88.9 fL (80.0-100.0); MPV 6.4 fl. (7.2-11.1); RBC 3.13 mil/uL (4.20-5.00); RDW-CV 13.9 % (10.5-14.5); WBC 6.6 thou/uL (4.0-11.0)
[2021-08-10 19:00] VITALS: BP 100/53
[2021-08-10 22:24] LABS: URINE BILIRUBIN NEGATIVE (Negative); URINE BLOOD 1+ (Negative); URINE CLARITY CLEAR; URINE COLOR YELLOW; URINE GLUCOSE-RANDOM NEGATIVE (Negative); URINE KETONES NEGATIVE (Negative); URINE LEUKOCYTES-REFLEX NEGATIVE (Negative); URINE NITRITE-REFLEX NEGATIVE (Negative); URINE PROTEIN NEGATIVE (Negative); URINE SPECIFIC GRAVITY 1.015 (1.005-1.030); URINE UROBILINOGEN 0.2 E.U./dl (0.2-1.0)
[2021-08-10 22:29] LABS: BACTERIA-REFLEX 1-9 Few /HPF (None Seen); CASTS None Seen /LPF (None Seen); CRYSTALS None Seen /LPF (None Seen); SQUAMOUS 0-3 Few /LPF (0-3); URINE RBC 3-10 Few /HPF (0-2); URINE WBC-REFLEX 0-5 Rare /HPF (0-5)
[2021-08-11 07:03] VITALS: BP 117/62
[2021-08-11 07:28] LABS: HEMATOCRIT 24.4 % (37.0-47.0); HEMOGLOBIN 8.5 gm/dL (12.0-15.0); MCV 88.6 fL (80.0-100.0); MPV 6.5 fl. (7.2-11.1); RBC 2.76 mil/uL (4.20-5.00); RDW-CV 13.9 % (10.5-14.5); WBC 6.5 thou/uL (4.0-11.0)
[2021-08-11 08:00] LABS: CALCIUM 8.2 mg/dL (8.5-10.1); CREATININE 1.9 mg/dL (0.6-1.3); POTASSIUM 4.7 mmol/L (3.5-5.1)
[2021-08-11 16:51] LABS: URIC ACID* 4.8 mg/dL (2.6-7.2)
[2021-08-11 19:35] VITALS: BP 115/64
[2021-08-11 20:53] VITALS: BP 155/76
[2021-08-11 21:02] VITALS: BP 120/71
[2021-08-12 08:00] VITALS: BP 108/60
[2021-08-12 08:35] LABS: HEMATOCRIT 22.9 % (37.0-47.0); HEMOGLOBIN 7.9 gm/dL (12.0-15.0); MCH 30.8 pg (26.0-34.0); MCHC 34.7 g/dL (28.0-37.0); MCV 88.6 fL (80.0-100.0); MPV 6.4 fl. (7.2-11.1); RBC 2.58 mil/uL (4.20-5.00); WBC 4.9 thou/uL (4.0-11.0)
[2021-08-12 08:55] LABS: CREATININE 1.7 mg/dL (0.6-1.3); POTASSIUM 4.7 mmol/L (3.5-5.1)
[2021-08-12 09:20] LABS: % SATURATION 23 % (20-39); IRON 63 ug/dL (50-175)
--- NOTE | 2021-08-12 11:20 | EKG ---
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: : 1940 Requested By: Remi Hoover Order Number: [id number] Reading MD: William Burks Measurements Intervals [place] Rate: 76 P: 22 NE: 128 QRS: -10 QRSD: 94 T: 29 QT: 397 QTc: 447 Interpretive Statements Sinus rhythm Inferior infarct, old, possible Compared to ECG 08/01/2021 17:02:43 Possible Myocardial infarct finding now present Short NE interval no longer present Electronically Signed On 08-12-2021 11:20:13 CDT by William Burks [email or web address] <ELECTRONICALLY SIGNED> By: William Burks MD, FACC 08/12/21 1120 99 99 William Burks MD, FAC /EPI
[2021-08-12 20:00] VITALS: BP 112/61
[2021-08-13 08:00] VITALS: BP 118/54
--- NOTE | 2021-08-13 08:59 | CON ---
[address] [address] CONSULTATION Name: АЛЕКСАНДР MCADAMS Room: [address] IN ..#: [id number] Admission: 08/03/21 Attend Phys: Remi Hoover MD Discharge: Date of : 42 Report #: [id number] THIS REPORT FOR: cc: Renu Lucas MD, Karmel MD Vasudeva, Amita MD ~ DATE OF CONSULTATION: 08/12/2021 NEPHROLOGY CONSULTATION CONSULTING PHYSICIAN: Remi Hoover MD. REASON FOR NEPHROLOGY CONSULTATION: Acute kidney injury on chronic kidney disease as well as hyponatremia. REASON FOR ADMISSION: Right femoral neck fracture, status post repair for rehabilitation. HISTORY OF PRESENT ILLNESS: This is an 81-year-old very pleasant female who ended up having a right hip fracture on 07/25, came to [facility] [place] on 07/27 and underwent right hip arthroplasty. A few days after that, on 07/31, she developed abdominal pain and nausea and also complained of constipation and was treated medically. She also had a syncopal event while standing with nursing and at that point, she was moved from rehab to tele and eventually moved back to rehab floor. She does have a Elam catheter over here. I am not sure if she was having urinary retention. She continues to have nausea when she eats and GI evaluated her and she is supposed to go for endoscopy today and gastric emptying study tomorrow. She has a history of Powell's esophagus as well as GERD and has had several endoscopies in the past. She was also getting ibuprofen over here for her right hip pain, was also receiving lisinopril. Her baseline creatinine is around 1.4-1.5, but her creatinine had gone up to 1.9 yesterday and her sodium had dropped to 124 yesterday. She had a sodium of 136 on admission and her creatinine was 1.3 on admission. I started her on low dose normal saline yesterday. Sodium is 125 today and creatinine is at 1.7 today. She feels fine this morning. She has also had 3 bowel movements yesterday. ALLERGIES: TO MORPHINE AND CODEINE. REVIEW OF SYSTEMS: As mentioned in history of present illness and otherwise, 10-point review of systems are negative. PAST MEDICAL AND SURGICAL HISTORY: Includes cochlear implant, ear implant on the left side, hypertension, dyslipidemia, GERD, osteoporosis, vertigo. HOME MEDICATIONS: Include Tylenol, erythromycin, famotidine, Neurontin, [place] [address] CONSULTATION Name: АЛЕКСАНДР MCADAMS Room: [address] IN [facility]#: [id number] Admission: 08/03/21 Attend Phys: Remi Hoover MD Discharge: Date of : 42 Report #: [id number] Lidoderm, Ativan, Zocor, Protonix, Fosamax, lisinopril, ibuprofen, Xarelto. FAMILY HISTORY: Noncontributory in this 81-year-old female. SOCIAL HISTORY: She does not smoke, drink alcohol or use illicit drugs. PHYSICAL EXAMINATION: VITAL SIGNS: Her blood pressure is 108/60, temperature 36.3, pulse rate is 82, respiratory rate is 18, pulse ox is 100% and she is on room air. GENERAL: She is awake and alert and oriented x 3. HEAD AND EYES: Atraumatic and normocephalic. Conjunctivae are normal. EARS, NOSE, AND THROAT: Normal ears, nose and throat. Mucous membranes are moist. NECK: There is no JVD. CHEST: Bilaterally clear to auscultation anteriorly. There are no crackles or wheezing. CARDIOVASCULAR: S1, S2 normal. No murmurs. ABDOMEN: Soft, nondistended, nontender. LOWER EXTREMITIES: There is no lower extremity edema. SKIN: Dry. NEUROLOGIC: Function is grossly intact. PSYCHIATRIC: Mood and affect seems to be normal. She is very pleasant. LABORATORY DATA: Her WBC is 4.9, hemoglobin is 7.9. Sodium is 125 this morning, creatinine is 1.7 this morning. Urine sodium was 53 and other labs were reviewed. Serum uric acid was 4.8. IMAGING: Abdominal x-ray and head CT scan were reviewed. ASSESSMENT: 1. Acute on chronic kidney disease, stage 3B, baseline creatinine is 1.4-1.5 and creatinine had peaked at 1.9, it was 1.3 on admission. Acute kidney injury in the setting of nonsteroidal antiinflammatory drug use, some volume depletion, use of lisinopril. CPK is normal at 113. Renal imaging will be checked. UA revealed 1+ blood with 3-10 RBCs per high power field, with no protein on dipstick, but previously she had no hematuria. She is on anticoagulation with Xarelto. 2. Hyponatremia. This is in the setting of constipation, very poor solute intake, some volume depletion and nonsteroidal antiinflammatory drug use could be contributing as well. Urine sodium was 53. Rest of the studies are pending. TSH is 0.3. We will defer to Internal Medicine for management. 3. Right femoral neck fracture, status post right hemiarthroplasty and this was done 07/28/2021. 4. Nausea, decreased appetite, vomiting, possible gastroparesis. She is on [facility] [address] [place] [place] [address] CONSULTATION Name: АЛЕКСАНДР MCADAMS Room: [address] IN ..#: [id number] Admission: 08/03/21 Attend Phys: Remi Hoover MD Discharge: Date of : 42 Report #: [id number] erythromycin. GI is following. She is supposed to go for gastric emptying study on Monday and supposed to go for endoscopy today. 5. Hypertension. Blood pressure seems to be controlled. 6. Mobility impairment. She is getting Physical Therapy and Occupational Therapy. 7. Osteoporosis. We will defer to Internal Medicine. 8. Hyperlipidemia. PLAN: 1. Because of poor solute intake, I will go ahead and add some salt tablets, it should help with her hyponatremia. Continue IV fluids at 50 mL an hour, normal saline. We will check sodium at noon and please let me know what that sodium is. If there is a possibility that she could be having SIADH and in that case, we do not want to keep giving her normal saline. Follow urine osmolality, serum cortisol. 2. Stopped ibuprofen as well as lisinopril. 3. We will check a renal ultrasound. 4. Also, check labs in the morning. 5. TSH 0.3. We will defer to Internal Medicine. Thank you for this consultation. We will follow with you. Discussed with the patient and the patient's nurse. <ELECTRONICALLY SIGNED> By: Kelsie Cancino MD 08/13/21 0859 0841 0918MD laci Norman
[2021-08-13 09:29] LABS: HEMATOCRIT 26.8 % (37.0-47.0); MCHC 33.7 g/dL (28.0-37.0); MCV 89.1 fL (80.0-100.0); MPV 6.4 fl. (7.2-11.1); RBC 3.01 mil/uL (4.20-5.00); RDW-CV 13.8 % (10.5-14.5); WBC 4.1 thou/uL (4.0-11.0)
[2021-08-13 09:30] LABS: CALCIUM 8.5 mg/dL (8.5-10.1); CREATININE 1.6 mg/dL (0.6-1.3); POTASSIUM 4.5 mmol/L (3.5-5.1)
[2021-08-13 20:00] VITALS: BP 122/70
[2021-08-14 08:00] VITALS: BP 117/66
[2021-08-14 08:09] LABS: CALCIUM 8.5 mg/dL (8.5-10.1); CREATININE 1.5 mg/dL (0.6-1.3); POTASSIUM 4.7 mmol/L (3.5-5.1)
[2021-08-14 19:00] VITALS: BP 104/68
[2021-08-15 07:30] VITALS: BP 144/80
[2021-08-15 20:00] VITALS: BP 150/83
[2021-08-16 04:41] LABS: CALCIUM 8.4 mg/dL (8.5-10.1); CREATININE 1.2 mg/dL (0.6-1.3); POTASSIUM 4.2 mmol/L (3.5-5.1)
[2021-08-16 07:33] VITALS: BP 117/69
[2021-08-16 19:00] VITALS: BP 118/73
[2021-08-17 07:50] VITALS: BP 135/86
[2021-08-17] MEDS ORDERED: REGLAN 5 MG TAB5 MG PO (10:13)
[2021-08-17 10:24] VITALS: BP 135/86
[2021-08-17] MEDS ORDERED: SODIUM CHLORIDE1 G2 PO ×2 (11:16)
[2021-08-17 11:39] VITALS: BP 135/86
== END 2021-08-17 13:00 | disposition home health service (06) | DRG 535 ==
LOC: M.REH 14:18
PROVIDERS: Internal Medicine; Internal Medicine Gastroenterology; Internal Medicine Nephrology; Psychiatry & Neurology Neurology; ADMIT Physical Medicine & Rehabilitation; ATTEND Physical Medicine & Rehabilitation
PROC: 0DJ08ZZ Inspection of Upper Intestinal Tract, Via Natural or Artificial Opening Endoscopic (ICD-10-PCS; principal; 2021-08-12)
DX: S72.001A Fracture of unspecified part of neck of right femur, initial encounter for closed fracture (principal); N17.0 Acute kidney failure with tubular necrosis; E87.1 Hypo-osmolality and hyponatremia; G93.40 Encephalopathy, unspecified; E86.0 Dehydration; K21.9 Gastro-esophageal reflux disease without esophagitis; E78.5 Hyperlipidemia, unspecified; M81.0 Age-related osteoporosis without current pathological fracture; W18.39XA Other fall on same level, initial encounter; N18.32 Chronic kidney disease, stage 3b; K52.9 Noninfective gastroenteritis and colitis, unspecified; D72.829 Elevated white blood cell count, unspecified; R06.4 Hyperventilation; F41.9 Anxiety disorder, unspecified; K22.70 Barrett's esophagus without dysplasia; I12.9 Hypertensive chronic kidney disease with stage 1 through stage 4 chronic kidney disease, or unspecified chronic kidney disease; K29.70 Gastritis, unspecified, without bleeding; D50.9 Iron deficiency anemia, unspecified; K64.8 Other hemorrhoids; K44.9 Diaphragmatic hernia without obstruction or gangrene; Z88.6 Allergy status to analgesic agent; Z83.3 Family history of diabetes mellitus; Z82.49 Family history of ischemic heart disease and other diseases of the circulatory system; Y93.89 Activity, other specified; Y92.89 Other specified places as the place of occurrence of the external cause; Y99.8 Other external cause status

== ENCOUNTER 2021-12-03 05:12 | Inpatient (IN) | payer MEDICARE, OTHER ==
[~2021-12-03] VITALS: Ht 162.6 cm; Wt 46.7 kg
[~2021-12-03 05:12] MED LIST changes: +REGLAN 5 MG TAB5 MG PO; +SODIUM CHLORIDE1 G2 PO; +XARELTO10 M1 PO
[2021-12-03 05:17] VITALS: BP 176/90
[2021-12-03 05:36] LABS: ABSOLUTE LYMPHOCYTES 2.5 thou/uL (0.8-5.3); ABSOLUTE MONOCYTES 0.7 thou/uL (0.0-1.2); ABSOLUTE NEUTROPHILS 4.9 thou/uL (1.6-8.1); BASOPHILS 0.5 %; EOSINOPHILS 0.1 %; HEMATOCRIT 31.3 % (37.0-47.0); HEMOGLOBIN 10.2 gm/dL (12.0-15.0); LYMPHOCYTES 30.5 %; MCH 25.9 pg (26.0-34.0); MCHC 32.5 g/dL (28.0-37.0); MCV 79.8 fL (80.0-100.0); MONOCYTES 9.2 %; MPV 7.4 fl. (7.2-11.1); NUCLEATED RBCS 0 /100WBC; PLATELET COUNT* 357 thou/uL (150-400); POLYS 59.7 %; RBC 3.92 mil/uL (4.20-5.00); RDW-CV 17.1 % (10.5-14.5); WBC 8.1 thou/uL (4.0-11.0)
[2021-12-03 05:45] LABS: CALCIUM 8.9 mg/dL (8.5-10.1); CREATININE 1.2 mg/dL (0.6-1.3); POTASSIUM 4.2 mmol/L (3.5-5.1)
[2021-12-03 05:50] LABS: ALBUMIN 3.8 g/dL (3.4-5.0); MAGNESIUM 1.8 mg/dL (1.8-2.4); TOTAL BILIRUBIN 0.3 mg/dL (<0.1-1.0); TOTAL PROTEIN 7.6 g/dL (6.4-8.2)
[2021-12-03 07:00] LABS: URINE BILIRUBIN NEGATIVE (Negative); URINE BLOOD NEGATIVE (Negative); URINE CLARITY CLEAR; URINE COLOR YELLOW; URINE GLUCOSE-RANDOM NEGATIVE (Negative); URINE KETONES NEGATIVE (Negative); URINE LEUKOCYTES-REFLEX NEGATIVE (Negative); URINE NITRITE-REFLEX NEGATIVE (Negative); URINE PROTEIN NEGATIVE (Negative); URINE SPECIFIC GRAVITY <= 1.005 (1.005-1.030); URINE UROBILINOGEN 0.2 E.U./dl (0.2-1.0)
--- NOTE | 2021-12-03 11:16 | EKG ---
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: : 1940 Requested By: Kinjal Mancini Order Number: [id number] MD: Sabas Arredondo Measurements Intervals [place] Rate: 80 P: 58 TN: 128 QRS: 32 QRSD: 121 T: 120 QT: 420 QTc: 485 Interpretive Statements Pacemaker spikes or probable artifact Sinus rhythm Diffuse nonspecific ST-T alteration Since the prior tracing nonspecific ST-T changes have occurred Electronically Signed On 12-03-2021 11:16:36 TOOL CHECKER by Sabas Arredondo [email or web address] <ELECTRONICALLY SIGNED> By: Sabas Arredondo MD, [facility] 12/03/21 1116 0518 Sabas Arredondo MD, [facility] /EPI
[2021-12-03 12:50] VITALS: BP 169/76
[2021-12-03 14:58] LABS: CALCIUM 8.5 mg/dL (8.5-10.1); CREATININE 1.1 mg/dL (0.6-1.3)
[2021-12-03 15:01] LABS: MAGNESIUM 1.9 mg/dL (1.8-2.4); PHOSPHORUS* 3.6 mg/dL (2.5-4.9)
[2021-12-03 16:30] VITALS: BP 169/76
[2021-12-03 17:09] VITALS: BP 162/90
[2021-12-03] MEDS ORDERED: NEURONTIN300 MG PO ×2 (19:14)
[2021-12-03] MEDS ORDERED: PROTONIX40 M2 PO ×3 (19:15)
[2021-12-03] MEDS ORDERED: SIMVASTATIN80 MG PO ×2 (19:17)
[2021-12-03] MEDS ORDERED: LISINOPRIL20 MG PO ×3 (19:19)
[2021-12-03] MEDS ORDERED: REGLAN 5 MG TAB5 MG PO ×2 (19:21)
[2021-12-03 20:02] VITALS: BP 132/81
[2021-12-04] VITALS: BP 133/68
--- NOTE | 2021-12-04 04:22 | NUR ---
PT A&OX4, VSS ON ROOM AIR, IV FLUIDS INFUSING ORDERED, UP WITH ASSIST TO BSC, REPOSTIONED Q2H. PT DIET NPO, SIPS OF WATER WITH MEDS. PAIN WELL CONTROLED WITH SCHEDULED TYLENOL. PT SLEEPING WELL, WILL CONTINUE TO MONITOR.
[2021-12-04 08:00] VITALS: BP 131/77
[2021-12-04 08:48] LABS: HEMATOCRIT 28.2 % (37.0-47.0); HEMOGLOBIN 9.1 gm/dL (12.0-15.0); MCH 25.9 pg (26.0-34.0); MCHC 32.2 g/dL (28.0-37.0); MCV 80.3 fL (80.0-100.0); MPV 7.7 fl. (7.2-11.1); RBC 3.51 mil/uL (4.20-5.00); RDW-CV 17.4 % (10.5-14.5); WBC 5.7 thou/uL (4.0-11.0)
[2021-12-04 09:13] LABS: CALCIUM 8.4 mg/dL (8.5-10.1); CREATININE 1.1 mg/dL (0.6-1.3); MAGNESIUM 1.8 mg/dL (1.8-2.4); POTASSIUM 3.8 mmol/L (3.5-5.1)
[2021-12-04 09:33] LABS: PHOSPHORUS* 4.4 mg/dL (2.5-4.9)
[2021-12-04] MEDS ORDERED: ZOFRAN ODT4 MG DISSOLVE ×3 (14:51)
[2021-12-04 16:10] VITALS: BP 139/72
[2021-12-04 20:00] VITALS: BP 140/82
[2021-12-05] VITALS: BP 131/68
--- NOTE | 2021-12-05 06:14 | NUR ---
ASSUMED CARE AT 1930. PATIENT RESTING IN BED ALL SHIFT. VOIDED PER BSC, UP WITH SBA, STAND PIVOT. TAKES PILLS WHOLE WITH WATER. HAD RIGHT EAR COCHLEAR IMPLANT HEARING AID, GIVEN CONTAINER LABELED HEARING AID TO PUT IT IN BECAUSE SHE REMOVES IT WHILE SLEEPING. THIS RN AND GRAPHITE DISK ASSEMBLER OBSERVED PATIENT SLEEPING AT TIMES, ALTHOUGH PATIENT DENIES SLEEPING. GIVEN MELATONIN AT HS, GAVE BENADRYL LATER, SEE MAR. SCHEDULED APAP PER ORDER, SEE MAR. GIVEN ZOFRAN IV PER ORDER FOR "STOMACH UPSET" SEE MAR. APPEARED ANXIOUS, STATES, "I JUST WANT TO GET THIS OUT." MEANING GALL BLADDER. NO BM THIS SHIFT DESPITE LAXATIVES, SEE MAR. TURNS SELF. IVF INFUSING TO RT FOREARM. CALL LITE IN REACH. BED ALARM ON. HOURLY ROUNDS CONTINUE.
[2021-12-05 07:46] LABS: HEMATOCRIT 27.1 % (37.0-47.0); HEMOGLOBIN 9.1 gm/dL (12.0-15.0); MCH 26.3 pg (26.0-34.0); MCHC 33.5 g/dL (28.0-37.0); MCV 78.4 fL (80.0-100.0); MPV 7.1 fl. (7.2-11.1); RBC 3.46 mil/uL (4.20-5.00); RDW-CV 16.9 % (10.5-14.5); WBC 5.4 thou/uL (4.0-11.0)
[2021-12-05 07:55] LABS: CALCIUM 8.7 mg/dL (8.5-10.1); CREATININE 1.2 mg/dL (0.6-1.3); POTASSIUM 3.9 mmol/L (3.5-5.1)
[2021-12-05 08:00] VITALS: BP 163/83
[2021-12-05] MEDS ORDERED: CEFDINIR300 MG PO ×3 (09:37)
[2021-12-05] MEDS ORDERED: MIRALAX17 GM PO ×3 (09:37)
[2021-12-05 11:57] VITALS: BP 163/83
--- NOTE | 2021-12-05 12:52 | NUR ---
AM ASSESSMENT AND VITALS COMPLETED CHARTED. MEDS PER EMAR. M/S STATUS. DISCHAGE ORDERS RECEIVED. DISCHARGE COMPLETED DOCUMENTED. IV REMOVED. ALL BELONGINGS GATHERED AND SENT HOME WITH PT. PT AWARE TO INFANT ROOM TEACHER MEDS FROM PHARMACY AND FOLLOW UP WITH SURGERY OUTPATIENT. PT LEFT UNIT IN WC WITH NURSING STAFF. PT LEFT HOSPITAL IN CAR WITH SPOUSE.
[2021-12-05] MEDS ORDERED: COLACE100 MG PO ×2 (22:30)
[2021-12-06] MEDS ORDERED: LISINOPRIL20 MG PO ×2 (13:37)
[2021-12-06] MEDS ORDERED: PROTONIX40 M2 PO ×2 (13:38)
[2021-12-07] MEDS ORDERED: ULTRAM 50MG TAB50 MG PO ×2 (10:09)
== END 2021-12-05 12:38 | disposition home or self-care (01) | DRG 444 ==
LOC: M.ERS 05:12 → M.2W 08:52 → M.TBA-ER 08:52 → M.2W 16:56
PROVIDERS: Emergency Medicine; Surgery; ADMIT Internal Medicine; ATTEND Internal Medicine
DX: K80.62 Calculus of gallbladder and bile duct with acute cholecystitis without obstruction (principal); J69.0 Pneumonitis due to inhalation of food and vomit; N39.0 Urinary tract infection, site not specified; J98.11 Atelectasis; I10 Essential (primary) hypertension; E78.5 Hyperlipidemia, unspecified; M81.0 Age-related osteoporosis without current pathological fracture; K21.9 Gastro-esophageal reflux disease without esophagitis; K44.9 Diaphragmatic hernia without obstruction or gangrene; Z20.822 Contact with and (suspected) exposure to COVID-19; Z90.710 Acquired absence of both cervix and uterus; Z88.6 Allergy status to analgesic agent; Z80.41 Family history of malignant neoplasm of ovary

== ENCOUNTER 2021-12-05 17:08 | Emergency (ER) | payer MEDICARE, OTHER ==
[~2021-12-05] VITALS: Ht 152.4 cm; Wt 49.9 kg
[~2021-12-05 17:08] MED LIST changes: +CEFDINIR300 MG PO; +MIRALAX17 GM PO; +NEURONTIN300 MG PO; +SIMVASTATIN80 MG PO; +ZOFRAN ODT4 MG DISSOLVE
[2021-12-05] MEDS ORDERED: COLACE100 MG PO (22:30)
[2021-12-05 23:02] VITALS: BP 120/64
[2021-12-06] MEDS ORDERED: LISINOPRIL20 MG PO (13:37)
[2021-12-06] MEDS ORDERED: PROTONIX40 M2 PO (13:38)
[2021-12-07] MEDS ORDERED: ULTRAM 50MG TAB50 MG PO (10:09)
== END 2021-12-05 23:08 | disposition home or self-care (01) ==
LOC: M.ERS 17:08
DX: K59.00 Constipation, unspecified (principal); I10 Essential (primary) hypertension; E78.5 Hyperlipidemia, unspecified; K21.9 Gastro-esophageal reflux disease without esophagitis; M81.0 Age-related osteoporosis without current pathological fracture; R10.84 Generalized abdominal pain; Z98.890 Other specified postprocedural states; Z90.710 Acquired absence of both cervix and uterus; Z79.899 Other long term (current) drug therapy; Z79.2 Long term (current) use of antibiotics; Z88.5 Allergy status to narcotic agent

== ENCOUNTER → 2021-12-06 | Outpatient (CLI) | payer MEDICARE, OTHER ==
[~2021-12-06] MED LIST changes: +COLACE100 MG PO; +ULTRAM 50MG TAB50 MG PO
== END ==
LOC: M.LAB 15:36
PROVIDERS: ATTEND Surgery
DX: Z01.812 Encounter for preprocedural laboratory examination (principal); Z20.822 Contact with and (suspected) exposure to COVID-19

== ENCOUNTER → 2021-12-07 | Day surgery (SDC) | payer MEDICARE, OTHER ==
[2021-12-07 09:06] LABS: HEMATOCRIT 27.3 % (37.0-47.0); MCH 26.2 pg (26.0-34.0); MCHC 32.8 g/dL (28.0-37.0); MCV 79.9 fL (80.0-100.0); MPV 7.5 fl. (7.2-11.1); RBC 3.42 mil/uL (4.20-5.00); RDW-CV 17.1 % (10.5-14.5); WBC 5.5 thou/uL (4.0-11.0)
[2021-12-07 09:14] LABS: POTASSIUM 3.7 mmol/L (3.5-5.1)
[2021-12-07 09:15] LABS: CALCIUM 8.7 mg/dL (8.5-10.1); CREATININE 1.1 mg/dL (0.6-1.3)
--- NOTE | 2021-12-09 10:38 | OP ---
[address] [address] OPERATIVE REPORT Name: АЛЕКСАНДР MCADAMS Room: [facility]#: [id number] Admission: 12/07/21 Attend Phys: Kelly Higgins DO Discharge: Date of : 42 Report #: [id number] THIS REPORT FOR: cc: Renu Lucas MD,Renu Higgins,Kelly Corona DO ~ cc: eRnu Lucas MD Dicated by Willem Abdul DO, PGY5 DATE OF SURGERY: 12/07/2021 PREOPERATIVE DIAGNOSIS: Cholelithiasis. POSTOPERATIVE DIAGNOSIS: Cholelithiasis. PROCEDURE PERFORMED: Laparoscopic cholecystectomy and laparoscopic lysis of adhesions, less than 30 minutes. SURGEON: Kelly Higgins DO CO-SURGEON: Willem Abdul DO, PGY5. MEAT GRADER: DOYLE Steinberg. ANESTHESIA: General, regional and local. ESTIMATED BLOOD LOSS: 10 mL. SPECIMEN: Gallbladder. FINDINGS: Intra-abdominal adhesions around the umbilicus, mildly distended gallbladder with adhesions, but no palpable stones after the gallbladder was removed. COMPLICATIONS: None. HISTORY OF PRESENT ILLNESS: The patient is an 81-year-old female who was previously hospitalized with symptoms of cholelithiasis. She did have ultrasound findings of cholelithiasis as well. At that time, we discussed outpatient followup for surgical intervention, we discussed laparoscopic cholecystectomy at length to include risks, benefits and alternatives and she agreed to proceed with surgery. DESCRIPTION OF PROCEDURE: After consent was obtained, [place] [address] OPERATIVE REPORT Name: АЛЕКСАНДР MCADAMS Room: [facility]#: [id number] Admission: 12/07/21 Attend Phys: Kelly Higgins DO Discharge: Date of : 42 Report #: [id number] the operating room and placed in the supine position. SCDs applied to bilateral lower extremities. The patient was safety belted to the bed. 2 grams of Ancef given for surgical prophylaxis. The patient underwent general endotracheal anesthesia without any complications. The patient received bilateral TAP blocks by the anesthesia team. Then, her abdomen was prepped and draped in the standard sterile fashion. Timeout was performed confirming the patient and procedure. An 11 blade scalpel was used to make a vertical incision below the umbilicus. Electrocautery was used for hemostasis and dissected down to the level of fascia. Once the fascia was encountered, it was grasped between 2 Kochers and scored with electrocautery. Hemostat was used bluntly to enter the peritoneum. Finger sweep was performed confirming no intra-abdominal adhesions. A 2 mm Cesar trocar was inserted into the abdomen and secured in place. Insufflation was initiated. Intra-abdominal contents were inspected. There were some adhesions right around our Cesar trocar. We placed the 5 mm trocar in the epigastrium and in the right upper quadrant. Adhesions were taken down with hook electrocautery. Once adhesions were removed, we placed a second 5 mm trocar in the right upper quadrant. The gallbladder was identified, grasped and elevated. There were adhesions to the lateral sidewall of the gallbladder. These were taken down with electrocautery. Once the gallbladder was free from adhesions, Jazmyn's pouch was identified, the visceral peritoneum over Jazmyn's pouch was scored and carried laterally and medially. Blunt dissection with a [place] dissector was used to create a window behind our cystic duct, and cystic duct could be seen going up into the gallbladder. Just medial to the duct, we found the artery. This was also circumferentially dissected free of surrounding tissue using a [place] dissector. Once a critical view of safety was obtained, both structures were seen going into the gallbladder, 2 clips were placed on the proximal cystic duct, 1 on the distal cystic duct. Two clips were placed on the proximal cystic artery and one on the distal cystic artery. Both structures were cut. Clips were inspected. There was no evidence of bleeding or bile leak. Hook electrocautery was used to carefully dissect the gallbladder off the bed of the liver. The gallbladder was placed in laparoscopic EndoCatch bag and the liver bed was inspected. There was a small area of bare liver that was cauterized. Hemostasis was completely ensured. Insufflation was let down. All trocars were removed under direct visualization. Gallbladder and its contents were removed from the infraumbilical trocar site. Supraumbilical fascia was reapproximated with one stitch of 0 Vicryl in a [id number] fashion. All skin incisions were reapproximated with 4-0 Monocryl. The sterile skin glue was applied to all incisions. All needle, instrument and sponge counts correct x 2 at the end of the case. The patient was awoken from general anesthesia and transferred to PACU in stable condition. <ELECTRONICALLY SIGNED> By: Kelly Higgins DO 12/09/21 [id number] Higgins DO /nt
--- NOTE | 2021-12-09 17:07 | PATH ---
[address] [address] PATHOLOGY RPT PROCEDURE Name: АЛЕКСАНДР MCADAMS Room: [facility]#: [id number] Admission: 12/07/21 Date of : 42 Discharge: Report #: [id number] Path Case #: [id number] [facility] Accession Number: [id number] . 01 Material submitted: . gallbladder - GALLBLADDER . 01 Clinical history: . BILIARY COLIC . 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 - Negative for malignancy. (TANYA:vinny; 12/09/2021) S 12/09/2021 1342 Local . 02 Electronically signed: . Alex Black MD, Pathologist NPI- [id number] . 01 Gross description: . Fixative: Formalin Labeled: Gallbladder Specimen received: Intact gallbladder Dimensions: 1.3 x 2.6 x 2.4 cm Serosa: Green-boogie and wrinkled to slightly roughened Lymph node: Not identified Mucosa: Velvety, bile-stained Average wall thickness: 0.2 cm Calculi: None present Abnormalities: None identified . A1- Slackline Operator body, fundus, and the cystic duct margin. ([facility]; 12/08/2021) NRI/NRI 12/08/2021 1524 Local . 02 Pathologist provided ICD-10: K81.1 . 02 CPT . 707118 Specimen Comment: A courtesy copy of this report has been sent to [phone], [phone] Specimen Comment: [phone] Specimen Comment: Report sent to / DR HALL Performed at: [address] [place] [address] PATHOLOGY RPT PROCEDURE Name: АЛЕКСАНДР MCADAMS Room: [facility]#: [id number] Admission: 12/07/21 Date of : 42 Discharge: Report #: [id number] Path Case #: [id number] [address] [id number] MD Omkar Renee MD Phone: [phone] Performed at: [address] [place] [address] [address] [id number] MD Nato Young MD Phone: [phone]
== END | disposition home or self-care (01) ==
LOC: M.SUR 08:19
PROVIDERS: ATTEND Surgery
DX: K80.20 Calculus of gallbladder without cholecystitis without obstruction (principal); R10.11 Right upper quadrant pain; Z98.890 Other specified postprocedural states; Z79.899 Other long term (current) drug therapy; Z88.8 Allergy status to other drugs, medicaments and biological substances